=== PATIENT | female | born 1955 | race Caucasian/White ===

== ENCOUNTER → 2021-03-16 | Outpatient (CLI) | payer MEDICARE, OTHER ==
--- NOTE | 2021-03-16 11:35 | KCIC ---
EXAM: Brain MRI without contrast. HISTORY: Headaches. TECHNIQUE: Multiplanar, multisequence magnetic resonance imaging of the brain was performed without c ontrast. COMPARISON: None. FINDINGS: There is no restricted diffusion to suggest acute or subacute infarction. There are small f oci of susceptibility effect along the left tentorium, likely due to calcification or chronic hemorrh age. There is no acute hemorrhage. There is no mass effect or midline shift. There is no hydrocephalu s. There are several scattered foci of signal change within the cerebral white matter, a nonspecific fin ding. The orbits are unremarkable. There is mild to moderate paranasal sinus mucosal thickening and t here are multiple maxillary sinus mucous retention cysts. The orbits and mastoid air cells are unrema rkable. There are normal flow voids within the cerebral vessels. There is no suspicious calvarial les ion. IMPRESSION: 1. No acute intracranial finding. 2. Multiple scattered focal areas of signal change within the cerebral white matter. This is most com monly due to chronic small vessel disease in patients of this age. However, given the patient history , the possibility of changes due to chronic migraine headaches can also be considered. 3. Paranasal sinus disease. Electronically signed by: Pilar Reagan MD (03/16/2021 11:33 AM) [facility]
== END ==
LOC: KCIC MRI 09:58
PROVIDERS: ATTEND Family Medicine
DX: G44.86 Cervicogenic headache (principal); I73.9 Peripheral vascular disease, unspecified; M54.16 Radiculopathy, lumbar region
CPT/HCPCS: 70551